=== PATIENT | male | born 1975 | race Caucasian/White ===

== ENCOUNTER → 2018-02-18 15:38 | Outpatient (CLI) | payer OTHER, SELFPAY | PROVIDERS: Family Provider Family Medicine; PCP Family Medicine | DX: Z23 Encounter for immunization (principal) | CPT/HCPCS: 90471; 90686 ==

== ENCOUNTER → 2019-02-10 15:07 | Outpatient (CLI) | payer OTHER, SELFPAY | PROVIDERS: PCP Family Medicine | DX: Z23 Encounter for immunization (principal) | CPT/HCPCS: 90471; 90686 ==

== ENCOUNTER → 2020-02-18 03:52 | Outpatient (CLI) | payer OTHER, SELFPAY | PROVIDERS: PCP Family Medicine; Referring Provider Internal Medicine; Visit Provider Internal Medicine | DX: Z23 Encounter for immunization (principal) | CPT/HCPCS: 90471; 90686 ==

== ENCOUNTER → 2020-04-28 08:44 | Outpatient (CLI) | payer OTHER, SELFPAY ==
[2020-04-28] MEDS: COVID-19 VACC(MODERNA-1)/PF 100 MCG/0.5 ML VIAL IM (08:52)
== END ==
PROVIDERS: PCP Family Medicine; Visit Provider Internal Medicine
DX: Z23 Encounter for immunization (principal)
CPT/HCPCS: 0011A; 91301

== ENCOUNTER → 2020-05-25 14:39 | Outpatient (CLI) | payer OTHER, SELFPAY ==
[2020-05-25] MEDS: COVID-19 VACC #2, MRNA(MOD) 100 MCG/0.5 ML VIAL IM (14:46)
== END ==
PROVIDERS: PCP Family Medicine; Visit Provider Internal Medicine
DX: Z23 Encounter for immunization (principal)
CPT/HCPCS: 0012A; 91301

== ENCOUNTER → 2020-06-02 07:56 | Outpatient (CLI) | payer OTHER, SELFPAY ==
[2020-06-02 08:39] LABS: Hematocrit 44.8 % (41-53); Mean Corpuscular HGB Conc 33.4 % (30-36); Mean Corpuscular Hemoglobin 31.4 PG (26-34); Platelet Count 216 X10^3/uL (150-400); Red Blood Cell Count 4.77 X10^6/uL (4.5-5.9); Red Cell Distribution Width 12.4 % (11.6-14.8); White Blood Cell Count 5.2 X10^3/uL (4.5-11.0)
[2020-06-02 08:49] LABS: Alanine Aminotransferase 50 IU/L (<50); Albumin 4.6 g/dL (3.5-5.0); Albumin Globulin Ratio 1.8 (1.0-2.8); Alkaline Phosphatase 36 U/L (38-126); Aspartate Aminotransferase 30 IU/L (17-59); BUN Creatinine Ratio 16.4 (6-22); Blood Urea Nitrogen 12 mg/dL (9-20); Calcium 9.6 mg/dL (8.4-10.2); Carbon Dioxide 30 mmol/L (22-32); Chloride 97 mmol/L (98-107); Cholesterol 241 mg/dL (140-199); Estimated Glomerular Filt Rate > 60.0 mL/min (>60); Globulin 2.5 g/dL (1.7-4.1); Glucose 110 mg/dL (70-100); HDL Cholesterol 55 mg/dL (40-60); HEMOLYSIS < 15 (0-50); LDL Cholesterol Calculated 142 mg/dL (<100); Potassium 4.3 mmol/L (3.4-5.1); Sodium 131 mmol/L (137-145); Total Protein 7.1 g/dL (6.3-8.2); Triglycerides 220 mg/dL (35-150)
[2020-06-02 14:08] LABS: Hemoglobin A1C% w Est Avg Glu 5.6 % (4.0-6.0)
== END ==
PROVIDERS: PCP Nurse Practitioner Family; Referring Provider Nurse Practitioner Family; Visit Provider Nurse Practitioner Family
DX: Z00.00 Encounter for general adult medical examination without abnormal findings (principal); Z13.6 Encounter for screening for cardiovascular disorders; R73.01 Impaired fasting glucose
CPT/HCPCS: 36415; 80053; 80061; 83036; 85027

== ENCOUNTER → 2020-06-05 14:03 | Outpatient (CLI) | payer OTHER, SELFPAY ==
--- NOTE | 2020-06-05 14:03 | DI.US.S_ITS ---
PROCEDURE: US ABDOMEN LIMITED INDICATIONS: right inguninal hernia and elevated liver enzymes TECHNIQUE: Real-time focused scanning was performed of the abdomen, with image documentation. COMPARISON: None. FINDINGS: The area of current clinical concern was targeted by the patient, and scanning both before and after Valsalva maneuvers multiple times was performed. No herniation is identified. IMPRESSION: No hernia found. Dictated by: Talon Bowers M.D. on 06/05/2020 at 16:11 Approved by: Talon Bowers M.D. on 06/05/2020 at 16:11
== END ==
PROVIDERS: PCP Nurse Practitioner Family; Referring Provider Nurse Practitioner Family; Visit Provider Nurse Practitioner Family
DX: K40.90 Unilateral inguinal hernia, without obstruction or gangrene, not specified as recurrent (principal); R74.8 Abnormal levels of other serum enzymes; R74.01 Elevation of levels of liver transaminase levels
CPT/HCPCS: 76705

== ENCOUNTER → 2020-07-25 13:57 | Outpatient (CLI) | payer OTHER, SELFPAY ==
[2020-07-25 14:34] LABS: COVID19 -Nasal RAPID Negative (Negative)
== END ==
PROVIDERS: PCP Nurse Practitioner Family; Visit Provider Specialist
DX: Z20.822 Contact with and (suspected) exposure to COVID-19 (principal)
CPT/HCPCS: 87635; C9803

== ENCOUNTER 2020-07-26 07:46 | Day surgery (SDC) | payer OTHER, SELFPAY ==
[2020-07-26] VITALS (11 sets, daily range): BP systolic 110–132; BP diastolic 65–84; PULSE 79–94; RESP 10–18; TEMP 36.5–36.9; O2SAT 91–99; BMI 29.5
--- NOTE | 2020-07-26 | PATH_ITS ---
[facility] Accession Number: [id number] . 01 Material submitted: . body - CYSTIC MASS . 01 Clinical history: . SDC . 02 Diagnosis: Skin, Cystic Mass, Biopsy: Epidermoid inclusion cyst. MRV 07/31/2020 1454 Local . 02 Electronically signed: . Jayna Hearn MD, Pathologist NPI- [id number] . 01 Gross description: . The specimen is received in formalin, labeled cystic mass and consists of a 3.1 x 1.6 cm fierro skin excised to a depth of 1.9 cm. The margin is inked blue, and the specimen is sectioned to reveal a 2.5 x 1.5 x 1.5 cm well-circumscribed fierro cyst coming to within 0.1 cm from the margin. Baling Machine Operator sections are submitted in cassettes A1-A2. (EA:[id number]) /MRV 07/27/2020 0953 Local . 02 Pathologist provided ICD-10: L72.0 . 02 CPT . 911359 Performed at: 01 [facility] [address] [facility], [place], [place] [id number] MD Urbano Rosales MD Phone: [phone] Performed at: 02 [facility] [address] [place], [place] [id number] MD Jayna Hearn MD Phone: [phone]
[2020-07-26] MEDS: LACTATED RINGERS 1,000 ML 100 ML IV ×2 (08:13→10:17)
--- NOTE | 2020-07-26 08:24 | P.HP_ITS ---
History of Present Illness History of Present Illness Date Patient Seen: 07/26/20 Time Patient Seen: 08:25 [place] [facility] [place]arrative: Patient is a gentleman here for repair of an umbilical and right inguinal hernia. He would prefer not to use mesh if possible. He also has a cyst on his neck that he has as to be removed. It is longstanding and steadily growing. Patient History Medical History Celiac disease Colon polyps (1999) Diverticulosis (1999) Elevated ALT measurement Environmental allergies History of flexible sigmoidoscopy Right inguinal hernia Surgical History History of vasectomy (2014) Family & Social History Family History Father Heart disease Stroke Grandfather Heart disease Cancer Grandfather Hypertension Cancer Social History: household members spouse,children Tobacco & Substance use: Smoking Status Former smoker alcohol intake current alcohol intake frequency 0-2 drinks per day Substance Use Type does not use Meds Home Medications and Allergies Home Medications Medication Instructions Recorded Confirmed Type No Known Home Medications 05/31/20 07/26/20 History Allergies Allergy/AdvReac Type Severity Reaction Status Date / Time No Known Drug Allergies Allergy Verified 07/25/20 15:10 Review of Systems Review of Systems ROS: Yes All systems reviewed with the patient and are negative except as otherwise documented Exam Vital Signs (past 8 hours): - 07/26/20 08:13 Temperature 97.7 F Pulse Rate 79 Respiratory Rate 18 Blood Pressure 132/81 Pulse Oximetry 99 Oxygen Delivery Method Room Air Oxygen Flow Rate 0 Narrative Exam Narrative: Cooperative no apparent distress. He has a 4 x 3 cm cystic mass base of the right neck. No overlying inflammation. Lungs are clear to auscultation no rales or rhonchi. Heart regular rate and rhythm without murmur gallop. Abdomen is mildly protuberant soft nontender. He has a tiny reducible umbilical hernia. He has reducible right inguinal hernia. No overlying rash of the skin. Alert and oriented x3. Assessment & Plan Assessment & Plan narrative: I have discussed the procedures with him. Risks of bleeding infection injury to nerves which could cause chronic pain or numbness, injury to the vas deferens, testicular blood supply and recurrence of these hernias was all discussed. He appears to understand wishes to proceed.
--- NOTE | 2020-07-26 08:27 | PM.PREOP ---
Pre-operative Note COVID-19 COVID-19 status: Negative Result date/Date tested (Pos, Neg/Pending): 07/25/20 Interval Note History & Physical reviewed/Exam performed by Physician: Yes Changes to H&P: No
[2020-07-26] MEDS: CEFAZOLIN 2 GM/100 ML FROZ.PIGGY IV (08:50)
--- NOTE | 2020-07-26 09:48 | SUR.OPER ---
Patient positioned left lateral on stretcher, secured with tape at hip, for excision of right base of neck mass. Head on pillow. Then, Supine on padded OR bed, head on pillow, arms secured on padded arm boards at <90 degrees abduction, legs uncrossed, safety belt at thigh, tape over blanket over lower legs.
[2020-07-26] MEDS: BUPIVACAINE 0.25% W/ EPI (PF) 10 ML VIAL 20 ML INJ (09:58)
[2020-07-26] MEDS: BUPIVACAINE 0.5% (PF) VIAL 30 ML INJ (09:59)
--- NOTE | 2020-07-26 11:34 | P.OP_ITS ---
Operative Date/Time/Diagnoses Date of procedure: 07/26/20 Time of procedure: 11:35 Pre-op diagnosis: Cystic mass base of right neck. Measured 4 x 3 cm. Reducible umbilical hernia. Reducible right inguinal hernia direct. Procedure & Clinicians Procedure: Excision of neck mass. Umbilical hernia repair without mesh. Right inguinal hernia repair after modification of the ileopubic tract repair. No mesh used in the right inguinal hernia repair as per patient request Same procedure as scheduled: Yes Indications: Symptomatic right inguinal hernia. Incidentally found umbilical hernia. Symptomatic neck mass. Surgeon: Mann Cosby Click Yes if Unassisted: Yes Anesthesia Type: General Operative Notes Findings: Very small defect at the umbilicus. Cyst removed from the neck without violation of the cavity. Direct hernia Closure Type: primary (In all locations) Specimen(s): other (Cyst at the neck) Prosthetic devices, grafts, tissues, transplants, or devices: None Estimated Blood Loss (mL): 10 Blood products transfused: none Procedure in detail: Patient was placed left lateral decubitus position on his stretcher and prepped and draped in the usual fashion and his neck. Elliptical incision was made around the lesion after injecting local anesthetic. Lesion was excised in its entirety. The subQ was closed with interrupted 3-0 Vicryl. The skin was closed with interrupted vertical mattress 3-0 nylon. Dressing was applied. Attention was turned to the right groin. The patient was placed supine on the operating room table and underwent general LMA anesthesia. He was prepped and draped in the usual fashion. Local anesthetic was infiltrated and A transverse incision was made overlying the right internal ring and carried down to the level of the external oblique. The external oblique was opened parallel with its fibers through the external ring. The cord structures were elevated. The cremaster was opened proximally and search made for an indirect sac.[You very large lipoma of the cord coming up from the preperitoneal space and obliterating the nearby floor along with occupying space adjacent to the cord structures with identified. Tissues over the fat was opened and the fat reduced into the preperitoneal space. I closed this sac-like structure over of the fat with a pursestring of 2-0 silk. The distal portion was removed. The floor was quite attenuated. In fact I could easily see a very large deep epigastric vessel and feel a very nearby adjacent femoral artery. The tissues were so flimsy and the artery so adherent that I decided that to perform a shoulder ice repair or open the floor to do a Fred repair would probably result in potential injury to these vascular structures. Therefore I decided to perform an ileopubic tract repair. Interrupted sutures of 0 Ethibond were placed from the edge of the inguinal ligament and what ileopubic tract was available to the shelving edge of the transversus abdominis. The sutures were placed in interrupted fashion from the pubic tubercle to create a snug fit of a new internal ring around the cord structures. This was to prevent a recurrence of the preperitoneal fat from coming through the cord. Once these were placed a relaxing incision was made in the posterior lamella of the anterior rectus sheath. The sutures were then tied.]. The floor was examined and was found to be adequate with this repair. The external oblique was closed with a running 3 0 Vicryl. The subcu was closed with interrupted 3 0 Vicryl. The skin was closed with a running 4 0 Vicryl subcuticular stitch. My attention was then turned to the umbilical hernia. A curvilinear incision was made in the infraumbilical fold and carried down level the fascia. Fascial edge was identified and the hernia sac entered and the small amount of fat encounter was easily reduced. Fascial edge was cleared of tissue and a single [id number] 0 Ethibond was used to close the defect which probably measured about 3/4 of a cm across. The umbilicus was tacked down to the fascia using an interrupted 3-0 Vicryl. SubQ was closed with interrupted 3-0 Vicryl. The skin was closed a running 4-0 Vicryl subcuticular stitch and Steri-Strips. Steri- Strips were also applied to the right inguinal hernia incision. Local anesthetic was infiltrated in both incisions prior to application of the Steri- Strips. Dressings were applied. The right testicle was pulled down. Patient tolerated the procedure well. She he was extubated and taken the recovery area in good condition. Complications: none Post-operative Condition: stable Disposition: PACU
[2020-07-26] MEDS: ONDANSETRON 4 MG/2 ML INJ IV (12:02)
[2020-07-26] MEDS: OXYCODONE/ACETAMINOPHEN 5/325 TABLET 1 TAB PO (12:02)
--- NOTE | 2020-07-26 13:18 | SUR.PHASEII ---
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
== END 2020-07-26 12:50 | disposition home or self-care (01) ==
PROVIDERS: PCP Nurse Practitioner Family; Referring Provider Nurse Practitioner Family; Visit Provider Specialist
PROC: (CPT 49505; principal; 2020-07-26 08:45)
PROC: (CPT 49505; 2020-07-26 08:45)
DX: K40.90 Unilateral inguinal hernia, without obstruction or gangrene, not specified as recurrent (principal); K42.9 Umbilical hernia without obstruction or gangrene; L72.0 Epidermal cyst
CPT/HCPCS: 49505; 49585; 11424; 12042; J0690; J1100; J1885; J2250; J2405; J2704; J3010

== ENCOUNTER → 2020-08-01 13:22 | Outpatient (CLI) | payer OTHER, SELFPAY ==
[2020-08-01 14:34] LABS: Alanine Aminotransferase 46 IU/L (<50); Albumin 4.4 g/dL (3.5-5.0); Albumin Globulin Ratio 1.6 (1.0-2.8); Alkaline Phosphatase 39 U/L (38-126); Aspartate Aminotransferase 30 IU/L (17-59); Bilirubin Total 0.4 mg/dL (0.2-1.3); Bilirubin Unconjugated 0.5 mg/dL (0.0-1.1); Globulin 2.8 g/dL (1.7-4.1); HEMOLYSIS 35 (0-50); Total Protein 7.2 g/dL (6.3-8.2)
== END ==
PROVIDERS: PCP Nurse Practitioner Family; Referring Provider Nurse Practitioner Family; Visit Provider Nurse Practitioner Family
DX: R74.01 Elevation of levels of liver transaminase levels (principal)
CPT/HCPCS: 36415; 80076

== ENCOUNTER → 2022-03-05 14:31 | Outpatient (CLI) | payer OTHER, SELFPAY ==
[2022-03-05 16:53] LABS: Add Manual Diff / Slide Review NO; Basophils Absolute Auto 0 /uL (0-100); Basophils Percent Auto 0.9 % (0-2); Eosinophils Absolute Auto 200 /uL (0-450); Eosinophils Percent Auto 3.6 % (2-4); Hematocrit 42.6 % (41-53); Hemoglobin 14.4 g/dL (13.5-17.5); Lymphocytes Absolute Auto 1600 /uL (1100-4500); Lymphocytes Percent Auto 31.3 % (25-40); Mean Corpuscular HGB Conc 33.8 % (30-36); Mean Corpuscular Hemoglobin 31.4 PG (26-34); Mean Corpuscular Volume 92.9 fL (80-100); Monocytes Absolute Auto 500 /uL (0-900); Monocytes Percent Auto 9.1 % (3-14); Neutrophils Absolute Auto 2800 /uL (1500-7000); Neutrophils Percent Auto 55.1 % (50-75); Platelet Count 271 X10^3/uL (150-400); Red Blood Cell Count 4.58 X10^6/uL (4.5-5.9); Red Cell Distribution Width 12.2 % (11.6-14.8)
[2022-03-05 17:09] LABS: Alanine Aminotransferase 38 IU/L (<50); Albumin 4.7 g/dL (3.5-5.0); Albumin Globulin Ratio 1.7 (1.0-2.8); Alkaline Phosphatase 39 U/L (38-126); Aspartate Aminotransferase 30 IU/L (17-59); BUN Creatinine Ratio 19.2 (6-22); Bilirubin Total 0.9 mg/dL (0.2-1.3); Blood Urea Nitrogen 15 mg/dL (9-20); Carbon Dioxide 29 mmol/L (22-32); Chloride 99 mmol/L (98-107); Cholesterol 219 mg/dL (140-199); Estimated Glomerular Filt Rate > 60 mL/min (>60); Globulin 2.8 g/dL (1.7-4.1); Glucose 99 mg/dL (70-100); HDL Cholesterol 47 mg/dL (40-60); HEMOLYSIS 15 (0-50); LDL Cholesterol Calculated 129 mg/dL (<100); Potassium 3.6 mmol/L (3.4-5.1); Sodium 137 mmol/L (137-145); Total Protein 7.5 g/dL (6.3-8.2); Triglycerides 213 mg/dL (35-150)
[2022-03-05 17:38] LABS: TSH w/ Reflex to FT4 3.82 uIU/mL (0.47-4.68)
[2022-03-05 20:01] LABS: Hemoglobin A1C% w Est Avg Glu 5.8 % (4.0-6.0)
== END ==
PROVIDERS: PCP Family Medicine; Referring Provider Family Medicine; Visit Provider Family Medicine
DX: E78.5 Hyperlipidemia, unspecified (principal); R42 Dizziness and giddiness
CPT/HCPCS: 36415; 80053; 80061; 83036; 84443; 85025

== ENCOUNTER → 2022-10-18 09:43 | Outpatient (CLI) | payer OTHER, SELFPAY ==
[2022-10-19 04:09] LABS: Labcorp Hemoglobin (Hb) A1c 5.9 % (4.8-5.6)
== END ==
PROVIDERS: PCP Family Medicine; Referring Provider Family Medicine; Visit Provider Family Medicine
DX: R73.01 Impaired fasting glucose (principal)
CPT/HCPCS: 36415; 83036

== ENCOUNTER → 2023-06-07 09:09 | Outpatient (CLI) | payer OTHER, SELFPAY ==
[2023-06-07 11:13] LABS: Alanine Aminotransferase 48 IU/L (<50); Albumin 4.3 g/dL (3.5-5.0); Albumin Globulin Ratio 1.7 (1.0-2.8); Alkaline Phosphatase 37 U/L (38-126); Aspartate Aminotransferase 31 IU/L (17-59); BUN Creatinine Ratio 17.8 (6-22); Bilirubin Total 1.1 mg/dL (0.2-1.3); Blood Urea Nitrogen 13 mg/dL (9-20); Calcium 9.3 mg/dL (8.4-10.2); Carbon Dioxide 28 mmol/L (22-32); Chloride 101 mmol/L (98-107); Cholesterol 217 mg/dL (140-199); Estimated Glomerular Filt Rate > 60 mL/min (>60); Globulin 2.5 g/dL (1.7-4.1); Glucose 107 mg/dL (70-100); HDL Cholesterol 44 mg/dL (40-60); HEMOLYSIS < 15 (0-50); LDL Cholesterol Calculated 137 mg/dL (<100); Potassium 4.6 mmol/L (3.4-5.1); Sodium 137 mmol/L (137-145); Total Protein 6.8 g/dL (6.3-8.2); Triglycerides 182 mg/dL (35-150)
[2023-06-07 12:27] LABS: Hemoglobin A1C% w Est Avg Glu 5.6 % (4.0-6.0)
== END ==
PROVIDERS: PCP Family Medicine; Referring Provider Family Medicine; Visit Provider Family Medicine
DX: E78.5 Hyperlipidemia, unspecified (principal); R73.01 Impaired fasting glucose; R06.83 Snoring; R53.83 Other fatigue
CPT/HCPCS: 36415; 80053; 80061; 83036

== ENCOUNTER 2023-09-02 06:49 | Day surgery (SDC) | payer OTHER, SELFPAY ==
[2023-09-02 07:12] VITALS: BP 130/82; PULSE 77; RESP 18; TEMP 36.2; O2SAT 96
[2023-09-02] MEDS: LACTATED RINGERS 1,000 ML 42 ML IV (07:22)
--- NOTE | 2023-09-02 07:45 | PM.HP.1 ---
History of Present Illness History of Present Illness Date Patient Seen: 09/02/23 Time Patient Seen: 07:45 Chief complaint: Colonoscopy Narrative: 47M hx of celiac dx here for diagnostic colonoscopy. No prior colonoscopy. No family hx of intestinal malignancy. [facility] Medical History (Updated 04/26/22 @ 16:50 by Jesus Randolph DO) Depression Hyperlipidemia IFG (impaired fasting glucose) Celiac disease History of flexible sigmoidoscopy Environmental allergies Right inguinal hernia Diverticulosis (1999) Colon polyps (1999) Surgical History History of vasectomy (2014) Family History Father Heart disease Stroke Grandfather Heart disease Cancer Grandfather Hypertension Cancer Social History marital status: number of children: 2 household members: spouse and children Smoking Status: Former smoker Tobacco: How many years used: 10 second hand exposure: No alcohol intake: current substance use type: does not use Meds Home Medications and Allergies Allergies Allergy/AdvReac Type Severity Reaction Status Date / Time No Known Drug Allergies Allergy Verified 09/02/23 07:11 Exam Vital Signs (past 8 hours): - 09/02/23 07:12 Temperature 97.2 F L Pulse Rate 77 Respiratory Rate 18 Blood Pressure 130/82 Pulse Oximetry 96 Oxygen Delivery Method Room Air Oxygen Flow Rate 0 Oxygen Delivery Method Room Air Oxygen Flow Rate 0 Narrative Exam Narrative: Gen-Adult man alert and oriented Assessment & Plan Assessment & Plan narrative: The patient requires colorectal screening and colonoscopy is recommended. Technical details were discussed. Risks, benefits, alternatives explained. Risks including but not limited to myocardial infarction, aspiration, bleeding, pain, missed lesion, incomplete examination, need for further radiographic studies, intestinal injury, and need for major abdominal surgery were discussed. All questions were answered to their satisfaction, and they are in agreement with this plan.
[2023-09-02 08:11] VITALS: BP 110/62; PULSE 64; RESP 10; TEMP 36.2; O2SAT 96
[2023-09-02 08:16] VITALS: BP 111/64; PULSE 65; RESP 12; O2SAT 96
--- NOTE | 2023-09-02 08:17 | P.OP.COLON_ITS ---
Operative Date/Time/Diagnoses Date of procedure: 09/02/23 Time of procedure: 08:17 Pre-op diagnosis: Colorectal screening Procedure & Clinicians Study performed: Screening colonoscopy Same procedure as scheduled: Yes Indications: Colorectal screening Surgeon: Leo Fabian Procedure Notes Procedure in detail: The history and physical was performed/updated and the patient is ASA class is 2. The procedure was discussed in detail with the patient. Potential risks co mplications including infection, bleeding, missed diagnosis, perforation, need for surgery, and were explained. Their questions were answered and informed consent was obtained. Patient was brought to the procedure room and placed standard monitoring equipment. The patient's vital signs were monitored continuously throughout the entire procedure. Prior to starting time-out was performed. The patient was placed in the left lateral recumbent position. Procedural sedation was administered by anesthesia. Examination began with a thorough inspection of the perianal area there was no evidence of fissures, fistulae, external hemorrhoids or cutaneous malignancy. The colonoscopy scope was then placed into the anal canal and was advanced to the cecum, which was identified by the ileocecal valve. The scope was then slowly withdrawn examining colon thoroughly in all directions, irrigating it of any residual stool. The scope was retroflexed within the rectum The patient tolerated the procedure well. They will be discharged once criteria are met. The prep was of good/excellent quality. The withdrawl time was 7 minutes. FINDINGS * No polyps masses or inflammation Specimen(s): none sent Impression: Normal colonoscopy Post-procedure Recommendations: Colonoscopy in 10 years Disposition: same day surgery
[2023-09-02 08:21] VITALS: BP 108/72; PULSE 66; RESP 16; O2SAT 96
[2023-09-02 08:26] VITALS: BP 112/70; PULSE 66; RESP 16; O2SAT 100
[2023-09-02 08:30] VITALS: PULSE 68; RESP 16; O2SAT 99
== END 2023-09-02 08:48 | disposition home or self-care (01) ==
PROVIDERS: PCP Family Medicine; Referring Provider Surgery; Visit Provider Surgery
PROC: 0DJD8ZZ Inspection of Lower Intestinal Tract, Via Natural or Artificial Opening Endoscopic (ICD-10-PCS; CPT 45378; principal; 2023-09-02 07:45)
DX: Z12.11 Encounter for screening for malignant neoplasm of colon (principal); K90.0 Celiac disease
CPT/HCPCS: 45378; J2704

== ENCOUNTER → 2023-12-09 14:35 | Outpatient (CLI) | payer OTHER, SELFPAY ==
[2023-12-09 15:55] LABS: Hemoglobin A1C% w Est Avg Glu 5.6 % (4.0-6.0)
== END ==
PROVIDERS: PCP Family Medicine; Referring Provider Family Medicine; Visit Provider Family Medicine
DX: R73.01 Impaired fasting glucose (principal)
CPT/HCPCS: 36415; 83036

== ENCOUNTER → 2024-06-11 09:17 | Outpatient (CLI) | payer OTHER, SELFPAY ==
[2024-06-11 10:13] LABS: Add Manual Diff / Slide Review NO; Basophils Absolute Auto 100 /uL (0-100); Basophils Percent Auto 1.6 % (0-2); Eosinophils Absolute Auto 100 /uL (0-450); Eosinophils Percent Auto 3.4 % (2-4); Hematocrit 44.7 % (41-53); Hemoglobin 15.1 g/dL (13.5-17.5); Lymphocytes Absolute Auto 1200 /uL (1100-4500); Lymphocytes Percent Auto 30.8 % (25-40); Mean Corpuscular HGB Conc 33.8 % (30-36); Mean Corpuscular Hemoglobin 30.9 PG (26-34); Mean Corpuscular Volume 91.6 fL (80-100); Monocytes Absolute Auto 400 /uL (0-900); Monocytes Percent Auto 9.5 % (3-14); Neutrophils Absolute Auto 2200 /uL (1500-7000); Neutrophils Percent Auto 54.7 % (50-75); Platelet Count 231 X10^3/uL (150-400); Red Blood Cell Count 4.87 X10^6/uL (4.5-5.9); Red Cell Distribution Width 12.9 % (11.6-14.8)
[2024-06-11 10:46] LABS: Hemoglobin A1C% w Est Avg Glu 5.7 % (4.0-6.0)
[2024-06-11 10:53] LABS: Alanine Aminotransferase 52 IU/L (<50); Albumin 4.6 g/dL (3.5-5.0); Albumin Globulin Ratio 2.1 (1.0-2.8); Alkaline Phosphatase 40 U/L (38-126); Aspartate Aminotransferase 34 IU/L (17-59); BUN Creatinine Ratio 22.8 (6-22); Bilirubin Total 0.9 mg/dL (0.2-1.3); Blood Urea Nitrogen 18 mg/dL (9-20); Calcium 9.5 mg/dL (8.4-10.2); Carbon Dioxide 26 mmol/L (22-32); Chloride 103 mmol/L (98-107); Estimated Glomerular Filt Rate > 60 mL/min (>60); Globulin 2.2 g/dL (1.7-4.1); Glucose 89 mg/dL (70-100); HEMOLYSIS < 15 (0-50); Potassium 4.4 mmol/L (3.4-5.1); Sodium 139 mmol/L (137-145); Total Protein 6.8 g/dL (6.3-8.2)
[2024-06-11 11:36] LABS: HIV 1 & 2 Ab/Ag 4th Gen Combo NEGATIVE (NEGATIVE); Hep C Virus Ab w/Reflex Quant NEGATIVE s/c (NEGATIVE)
[2024-06-11 16:53] LABS: Cholesterol 190 mg/dL (140-199); HDL Cholesterol 40 mg/dL (40-60); LDL Cholesterol Calculated 116 mg/dL (<100); Triglycerides 172 mg/dL (35-150)
== END ==
PROVIDERS: PCP Family Medicine; Referring Provider Family Medicine; Visit Provider Family Medicine
DX: E78.5 Hyperlipidemia, unspecified (principal); R73.01 Impaired fasting glucose; R42 Dizziness and giddiness
CPT/HCPCS: 36415; 80053; 80061; 83036; 85025; 86803; 87389

== ENCOUNTER → 2025-01-01 08:18 | Outpatient (CLI) | payer OTHER, SELFPAY ==
[2025-01-01 09:05] LABS: Hematocrit 45.0 % (41-53); Hemoglobin 15.4 g/dL (13.5-17.5); Mean Corpuscular HGB Conc 34.3 % (30-36); Mean Corpuscular Hemoglobin 31.1 PG (26-34); Mean Corpuscular Volume 90.8 fL (80-100); Platelet Count 218 X10^3/uL (150-400)
[2025-01-01 09:15] LABS: Hemoglobin A1C% w Est Avg Glu 5.9 % (4.0-6.0)
[2025-01-01 09:22] LABS: Alanine Aminotransferase 53 IU/L (<50); Albumin 4.6 g/dL (3.5-5.0); Albumin Globulin Ratio 1.9 (1.0-2.8); Alkaline Phosphatase 40 U/L (38-126); Blood Urea Nitrogen 9 mg/dL (9-20); Calcium 9.2 mg/dL (8.4-10.2); Carbon Dioxide 27 mmol/L (22-32); Chloride 101 mmol/L (98-107); Estimated Glomerular Filt Rate > 60 mL/min (>60); Globulin 2.4 g/dL (1.7-4.1); Glucose 111 mg/dL (70-99); HEMOLYSIS < 15 (0-50); Potassium 4.6 mmol/L (3.4-5.1); Sodium 136 mmol/L (137-145); Total Protein 7.0 g/dL (6.3-8.2)
[2025-01-01 09:35] LABS: Vitamin D 25 Hydroxy (D3) 34.4 ng/mL (30.0-100.0)
[2025-01-01 09:56] LABS: TSH w/ Reflex to FT4 3.89 uIU/mL (0.47-4.68)
[2025-01-01 09:57] LABS: Ferritin 263 ng/mL (18-464)
[2025-01-01 10:15] LABS: Vitamin B12 647 pg/mL (239-931)
== END ==
PROVIDERS: PCP Family Medicine; Referring Provider Family Medicine; Visit Provider Family Medicine
DX: G47.33 Obstructive sleep apnea (adult) (pediatric) (principal); R73.01 Impaired fasting glucose; E78.2 Mixed hyperlipidemia; R53.82 Chronic fatigue, unspecified
CPT/HCPCS: 36415; 80053; 82306; 82607; 82728; 83036; 84403; 84443; 85027

== ENCOUNTER → 2025-01-11 10:25 | Outpatient (CLI) | payer OTHER, SELFPAY ==
--- NOTE | 2025-01-11 10:26 | DI.ECHO.S_ITS ---
[facility] : : [address] : [place] : : [id number] : : Phone: [phone] Echocardiogram Report + + :Name: MAKENNA LI Study Date: 01/11/2025 Height: 71 in : :Hospital ReadingLocation: Weight: 232 lb : : Gender: Male BSA: 2.2 m2 : :: 1975 Age: 49 yrs BP: 135/86 mmHg: :Reason For Study: DYSPNEA ON EXERTION : :Ordering Physician: CONNIE, : :MARCIAL Performed By: Tin Chester : :Referring: MARCIAL ROSALES : + + Interpretation Summary The left ventricle is normal in size. The left ventricular ejection fraction is normal. The ejection fraction is estimated to be 60-65%. The right ventricle is normal in size and function. No significant valvular pathology seen. The IVC is of normal diameter and collapses greater than 50% with a sniff. This suggests a low right atrial pressure of 3 mm Hg. Procedure: A two-dimensional transthoracic echocardiogram with color flow and Doppler was performed. The study quality was technically adequate. There is no prior echocardiogram noted for this patient. The patient was in normal sinus rhythm during the exam. Left Ventricle: The left ventricle is normal in size. Left ventricular wall thickness is mildly increased. There is no thrombus. The ejection fraction is estimated to be 60-65%. The left ventricular ejection fraction is normal. There are no focal wall motion abnormalities. Diastolic parameters suggest a relaxation abnormality of the left ventricle, consistent with probable normal filling pressures. Right Ventricle: The right ventricle is normal in size and function. Atria: The left atrium is mildly dilated. Right atrial size is normal. There is no Doppler evidence for an interatrial shunt. Mitral Valve: The mitral valve leaflets appear normal. There is no evidence of stenosis, fluttering, or prolapse. There is trace mitral regurgitation. Aortic Valve: The aortic valve is trileaflet. The aortic valve opens well. The aortic valve is slightly calcified. There is no aortic valve stenosis. No aortic regurgitation is present. Tricuspid Valve: The tricuspid valve leaflets are thin and pliable. No tricuspid regurgitation. Pulmonic Valve: The pulmonic valve leaflets are thin and pliable; valve motion is normal. There is trace pulmonic regurgitation. Great Vessels: At the upper limit of normal size. BSA 2.2 mA???. The ascending aorta is at the upper limits of normal in size. The pulmonary artery is normal size. The IVC is of normal diameter and collapses greater than 50% with a sniff. This suggests a low right atrial pressure of 3 mm Hg. Pericardium/ Pleura There is no pericardial effusion. There is no pleural effusion. MMode/2D Measurements & Calculations LVIDd: 4.5 cm LVOT diam: 2.5 cm LVIDs: 2.8 cm Ao root diam: 4.0 cm FS: 38.2 % asc Aorta Diam: 3.9 cm EPSS: 0.58 cm IVSd: 1.2 cm LVPWd: 1.2 cm LV samuels. diameter/BSA (cm/m^2): 2.0 LV sys. diameter/BSA (cm/m^2): 1.2 LA A2 area: 28.8 cm2 RA long axis: 4.8 cm LA A4 area: 26.6 cm2 RA area: 13.6 cm2 LA length (vol): 6.7 cm RA vol: 33.0 ml LA vol: 97.2 ml RA : 14.7 ml/m2 LA vol index: 43.3 ml/m2 IVC diam: 1.7 cm RVD1 (basal): 3.3 cm RVD2 (mid): 3.0 cm TAPSE: 2.5 cm Doppler Measurements & Calculations Ao V2 max: 150.8 cm/sec LVOT Max Marcelino: 124.1 cm/sec Ao V2 mean: 101.9 cm/sec LV V1 max P.2 mmHg Ao max P.1 mmHg LV V1 VTI: 28.2 cm Ao mean P.7 mmHg SHILPI(I,D): 4.4 cm2 Ao V2 VTI: 30.6 cm SHILPI(V,D): 3.9 cm2 sev ratio: 0.92 SHILPI indexed to BSA (cm^2/m^2): 1.9 MV E max marcelino: 51.3 cm/sec PA V2 max: 123.1 cm/sec MV A max marcelino: 67.4 cm/sec PA V2 mean: 77.9 cm/sec MV E/A: 0.76 PA mean P.9 mmHg Med Peak E' Marcelino: 7.4 cm/sec PA pr(Accel): 58.4 mmHg E/E' med: 7.0 Lat Peak E' Marcelino: 9.1 cm/sec E/E' lat: 5.6 E/e' average: 6.3 MV dec time: 0.24 sec SV(LVOT): 133.4 ml Reading Physician:01:26 PM
== END ==
LOC: ECHO 10:26
PROVIDERS: PCP Family Medicine; Referring Provider Family Medicine; Visit Provider Family Medicine
DX: R06.09 Other forms of dyspnea (principal); R55 Syncope and collapse
CPT/HCPCS: 93306

== ENCOUNTER → 2025-02-09 08:08 | Outpatient (CLI) | payer OTHER, SELFPAY ==
--- NOTE | 2025-02-10 07:43 | DI.NM.S_ITS ---
DATE OF SERVICE: 02/09/2025 PROCEDURE: Exercise stress test. INDICATIONS: Fatigue, dyspnea. CARDIAC STRESS: The patient underwent exercise stress test under the supervision of an attending staff. The patient walked on [place] protocol for 9 minutes and 29 seconds, achieved 10.2 METs of workload, SANTHOSH positive 10%, maximum heart rate of 180, which was 105% of target heart rate. Resting blood pressure 118/90 and peak blood pressure 170/90. Baseline rhythm sinus. During stress, no convincing ischemic EKG changes seen. Rare PVCs. No complex arrhythmias. No chest pain. He had some shortness of breath. Oxygen saturation 94% on room air and 96% at peak exercise. Normal recovery. CONCLUSION: Exercise stress test is negative for inducible ischemia. No chest pain or significant arrhythmias. 10.2 METs of workload. Walked on [place] protocol for 9 minutes and 29 seconds. Resting blood pressure 116/90 and peak blood pressure 170/90. He had some shortness of breath with resting oxygen saturation 94% and peak oxygen saturation 96%. Overall, low-risk exercise stress test. Grey Gurvinder - OLGA/jono/GABO doc#: [id number]/job#: [id number] dd: 02/09/2025 17:08:00 dt: 02/09/2025 18:12:00 DICTATING /COPIES TO: Smiley Butt MD COPIES MNE: TITO;
== END ==
LOC: NUCM 08:09
PROVIDERS: PCP Family Medicine; Referring Provider Family Medicine; Visit Provider Family Medicine
DX: R06.09 Other forms of dyspnea (principal); R55 Syncope and collapse
CPT/HCPCS: 93017